=== PATIENT | female | born 1975 | race African-American/Black ===

== ENCOUNTER 2021-07-01 13:15 | Outpatient (CLI) | payer OTHER | END 2021-07-01 13:16 | disposition home or self-care (01) | LOC: CSHMRI 13:15 | PROVIDERS: ATTEND Psychiatry & Neurology Neurology | DX: G35 Multiple sclerosis (principal); M47.812 Spondylosis without myelopathy or radiculopathy, cervical region; R90.82 White matter disease, unspecified | CPT/HCPCS: 70553; 72156 ==

== ENCOUNTER 2022-04-25 08:43 | Outpatient (CLI) | payer BC ==
[2022-04-25] MEDS ORDERED: Magnevist 469MG/ML 20 ML VIAL ONE ×2 (14:25)
== END 2022-04-25 08:44 | disposition home or self-care (01) ==
LOC: CSHMRI 08:43
PROVIDERS: ATTEND Psychiatry & Neurology Neurology
DX: G35 Multiple sclerosis (principal); M47.812 Spondylosis without myelopathy or radiculopathy, cervical region; R90.82 White matter disease, unspecified
CPT/HCPCS: 70553; 72156

== ENCOUNTER 2024-01-07 14:36 | Outpatient (CLI) | payer BC | END 2024-01-07 14:37 | disposition home or self-care (01) | LOC: CSHMRI 14:36 | PROVIDERS: ATTEND Nurse Practitioner Family | DX: G35 Multiple sclerosis (principal); M47.812 Spondylosis without myelopathy or radiculopathy, cervical region | CPT/HCPCS: 70553; 72156 ==

== ENCOUNTER 2025-07-08 12:33 | Outpatient (CLI) | payer BC | END 2025-07-08 12:34 | disposition home or self-care (01) | LOC: CSHULT 12:33 | PROVIDERS: ATTEND Family Medicine | DX: R22.2 Localized swelling, mass and lump, trunk (principal) | CPT/HCPCS: 76536 ==

== ENCOUNTER 2025-07-11 13:25 | Outpatient (CLI) | payer BC ==
[2025-07-11] MEDS ORDERED: Iopamidol 300 61% 100 ML VIAL FS ONE (14:12)
== END 2025-07-11 13:26 | disposition home or self-care (01) ==
LOC: CSHCT 13:25
PROVIDERS: ATTEND Family Medicine
DX: R59.1 Generalized enlarged lymph nodes (principal); R91.1 Solitary pulmonary nodule
CPT/HCPCS: 71270